=== PATIENT | female | born 1980 | race Caucasian/White ===

== ENCOUNTER 2019-10-25 17:09 | Emergency (ER) | payer MEDICAID ==
[~2019-10-25] VITALS: Ht 162.6 cm; Wt 65.8 kg
[2019-10-25 17:16] VITALS: BP 119/58; Ht 162.6 cm; Wt 65.8 kg
== END 2019-10-25 18:06 | disposition home or self-care (01) ==
LOC: ED 17:09
DX: S89.91XA Unspecified injury of right lower leg, initial encounter (principal); W22.8XXA Striking against or struck by other objects, initial encounter; Y93.89 Activity, other specified; Y92.89 Other specified places as the place of occurrence of the external cause; Y99.8 Other external cause status